=== PATIENT | female | born 1975 | race African-American/Black ===

== ENCOUNTER → 2016-06-10 | Outpatient (CLI) | payer OTHER ==
[~2016-06-10] MED LIST: ACETAMINOPHEN325 MG PO; ADVAIR DISKU1 500/50 INH; ALBUTEROL17 GM INH; ALDACTONE25 MG PO; ASPIRIN81 MG PO; ATORVASTATIN CA40 MG PO; B-12500 MCG PO; CARVEDILOL25 MG PO; CLARITIN10 MG PO; CLOPIDOGREL75 MG PO; COMBIVENT U/D3 ML INH; COREG3.125 MG PO; CYANOCOBALAM1000 MCG PO; DEMADEX PO; FUROSEMIDE40 MG PO; GLIPIZIDE2.5 MG/BOT PO; GUAIFENESIN400 M1 PO; HYDRALAZINE HC100 MG PO; HYDRALAZINE HCL25 MG PO; ISORDIL PO; ISOSORBIDE DINI30 MG PO; LASIX20 MG PO; LEVEMIR FL100 UNIT/1 SQ; LEVEMIR SQ; LIPITOR40 MG PO; LISINOPRIL20 MG PO; METFORMIN PO; MUCINEX100 MG/BOX PO; PLAVIX PO; PRINIVIL40 MG PO; SYMBICORT INH; VICTOZA0.6 MG/0.1 SUBQ; ZOCOR20 MG PO
--- NOTE | ~2016-06-10 | US136 ---
[facility] A Service of [facility] RADIOLOGY TEXT RESULTS PATIENT: MOIRA RHODES LOCATION: CNIV : 73 UNIT #: [id number] AGE: [address]: RELL GIFFORD MD SEX: F ORDER DR: [id number] [place], [place] [address] [id number] O MR#: [id number] Acc #: [id number] NAME: MOIRA RHODES : 1975 SEX: F STUDY DATE/TIME: 06/10/2016 14:33 UNIT: CNIV ROOM: STUDY DESCRIPTION: U/L [facility] Art Study [facility] Attending Physician: Rell Gifford M.D. Referring Physician: Rell Gifford M.D. Ordering Physician: Rell Gifford M.D. Primary Care Physician: Rell Gifford M.D. MEDICAL IMAGING REPORT This report is preliminary unless electronic signature is present EXAM Ankle brachial indices HISTORY Claudication FINDINGS The right brachial pressure is 152 and the left brachial pressure is 151. The right dorsalis pedis pressure is 158, posterior tibial 149 and toe 142 for an ankle to brachial index of 1.04. The left dorsalis pedis pressure is 263, posterior tibial 152 and toe 140 for an ankle to brachial index of 1.07. Pulse volume recording tracings demonstrate a good amplitude signal at the ankle and digital level on both sides. Doppler waveform analysis indicates a biphasic signal in the dorsalis pedis arteries bilaterally. There is a biphasic signal in the posterior tibial artery on the right and a triphasic signal in the posterior tibial artery on the left. IMPRESSION Normal perfusion to both legs. Ankle to brachial index is 1.04 on the right and 1.07 on the left. Dictated by... Jerardo Garcia M.D. [facility] A Service [facility] RADIOLOGY TEXT RESULTS PATIENT: MOIRA RHODES LOCATION: CNIV : 74 UNIT #: [id number] AGE: [address]: RELL GIFFORD MD SEX: F ORDER DR: THIS IS AN ELECTRONICALLY VERIFIED REPORT Jerardo Garcia M.D. at 06/15/2016 4:30 PM SBS/to TD: 06/10/2016 18:43 JOB #: [id number] MEDICAL IMAGING REPORT Page 1 of 1 COPY
== END | disposition home or self-care (01) ==
LOC: CNIV 14:27
DX: I99.8 Other disorder of circulatory system (principal); E11.65 Type 2 diabetes mellitus with hyperglycemia
CPT/HCPCS: 93922